=== PATIENT | male | born 1975 | race African-American/Black ===

== ENCOUNTER 2017-01-03 08:46 | Emergency (ER) | payer SELFPAY ==
[~2017-01-03] VITALS: Ht 162.6 cm; Wt 78.0 kg
[2017-01-03 08:46] VITALS: BP 127/91
[2017-01-03] MEDS ORDERED: KETOROLAC TROMETHAMINE INJ 30 MG/ML VIAL ONE (09:17)
[2017-01-03] MEDS ORDERED: KETOROLAC TROMETHAMINE INJ 60 MG/2 ML VIAL IM ONE (09:30)
== END 2017-01-03 09:35 | disposition home or self-care (01) ==
LOC: ER 08:48
DX: M62.838 Other muscle spasm (principal)
CPT/HCPCS: 96372; 99283; A4606; J1885; Z7610

== ENCOUNTER 2017-01-15 20:17 | Emergency (ER) | payer SELFPAY ==
--- NOTE | 2017-01-15 20:25 | NUR ---
CALLED FOR TRIAGE. STATES "I WILL F/U WITH MY MD"
== END 2017-01-15 20:26 | disposition left against medical advice (07) ==
LOC: ER 20:17
DX: Z53.21 Procedure and treatment not carried out due to patient leaving prior to being seen by health care provider (principal)

== ENCOUNTER 2017-01-17 09:42 | Emergency (ER) | payer SELFPAY ==
[~2017-01-17] VITALS: Ht 162.6 cm; Wt 77.1 kg
--- NOTE | 2017-01-17 09:50 | NUR ---
PRESENTS SELF TO ED DT LEFT SIDED NECK AND ARM PAIN, UNKNOWN ETIOLOGY X 3 DAYS. VSS
[2017-01-17] MEDS ORDERED: CARISOPRODOL 350 MG TABLET PO ONE (10:00)
[2017-01-17] MEDS ORDERED: HYDROCODONE/APAP 5/325MG 1 EACH TABLET PO ONE (10:00)
[2017-01-17] MEDS ORDERED: ONDANSETRON 4 MG TAB.RAPDIS PO ONE (10:00)
[2017-01-17] MEDS ORDERED: ONDANSETRON 4 MG TAB.RAPDIS ONE (10:03)
[2017-01-17] MEDS ORDERED: HYDROCODONE/APAP 5/325MG 1 EACH TABLET ONE (10:03)
[2017-01-17] MEDS ORDERED: CARISOPRODOL 350 MG TABLET ONE (10:03)
--- NOTE | 2017-01-17 10:30 | NUR ---
PATIENT TAKEN TO CT VIA WHEELCHAIR.
--- NOTE | 2017-01-17 10:40 | NUR ---
PATIENT RETURNED FROM CT
[2017-01-17 11:49] VITALS: BP 112/78
--- NOTE | 2017-01-17 11:49 | NUR ---
Patient discharged to home in stable condition. Written and verbal after care instructions given. Patient verbalizes understanding of instruction.
== END 2017-01-17 11:50 | disposition home or self-care (01) ==
LOC: ER 09:48
DX: S16.1XXA Strain of muscle, fascia and tendon at neck level, initial encounter (principal); M43.6 Torticollis; Z90.89 Acquired absence of other organs; Z98.890 Other specified postprocedural states; X58.XXXA Exposure to other specified factors, initial encounter; Y93.89 Activity, other specified; Y92.89 Other specified places as the place of occurrence of the external cause; Y99.9 Unspecified external cause status
CPT/HCPCS: 70490; 99284; A4606; Q0162; Z7610